=== PATIENT | male | born 1955 | race Caucasian/White ===

== ENCOUNTER 2017-06-15 05:38 | Day surgery (SDC) | payer BC ==
[2017-06-15] MEDS ORDERED: LR 1,000 ML IV ONE (05:52)
[2017-06-15] MEDS ORDERED: LIDOCAINE 1% 2 ML INJ ID PRN (05:52)
[2017-06-15 06:44] VITALS: PULSE 70
[2017-06-15] MEDS ORDERED: LIDOCAINE 2% JELLY 20 ML (UROJECT) ONE (06:50)
[2017-06-15] MEDS ORDERED: levOFLOXACIN 500 MG/DEXTROSE 100 ML IV ONE (07:00)
--- NOTE | 2017-06-15 07:23 | PDHPUP ---
History & Physical Update H&P update statement: This history and physical update is based on an assessment of the patient which was completed after admission or registration (within 24 hours), but prior to the surgery/procedure. H&P update: no change in patient's condition since H&P completed
--- NOTE | 2017-06-15 07:28 | PDANEPAE ---
ANE History of Present Illness Patient presents for TURBT ANE Past Medical History - Cardiovascular History Hx Hypertension: Yes Hx Arrhythmias: No Hx Chest Pain: No Hx Coronary Artery / Peripheral Vascular Disease: No Hx CHF / Valvular Disease: No Hx Palpitations: No Cardiovascular History Comment: on LIpitor - Pulmonary History Hx COPD: No Hx Asthma/Reactive Airway Disease: No Hx Recent Upper Respiratory Infection: No Hx Oxygen in Use at Home: No Hx Sleep Apnea: Yes Sleep Apnea Screening Result - Last Documented: Positive Pulmonary History Comment: asthma -well controlled - Neurologic History Hx Cerebrovascular Accident: No Hx Seizures: No Hx Dementia: No - Endocrine History Hx Diabetes: Yes Endocrine History Comment: DM TYPE I SINCE AUG 2008. ACUTE PANCREATITIS 2008. Insulin Pump x 7-8 weeks-Hgb A1c coming down. - Renal History Hx Renal Disorders: Yes Renal History Comment: recurrent bladder tumor. - Liver History Hx Hepatic Disorders: No - Neurological & Psychiatric Hx Hx Neurological and Psychiatric Disorders: No - Cancer History Hx Cancer: Yes Cancer History Comment: DEPRESSION,meds for 'focus"- on Provigil, Ritalin, Rexulti,and Vibryd. - Congenital Disorder History Hx Congenital Disorders: No - GI History Hx Gastrointestinal Disorders: Yes Gastrointestinal History Comment: GERD. s/p Whipple procedure- uses creon capsules to aid digestion. - Other Health History Other Health History: dry skin from diabetes. lower left missing teeth - Chronic Pain History Chronic Pain: No - Surgical History Prior Surgeries: TURBT 07-28, Whipple at [facility] , CHOLECYSTECTOMY 2008, scopes bilat knees, R shoulder scope. left total knee. ANE Review of Systems Review of Systems: - Exercise capacity METS (RN): 4 METS ANE Patient History - Allergies Allergies/Adverse Reactions: adenosine [Adenosine] Allergy (Intermediate, Verified 05/23/16 16:21) INCREASED ASTHMA SX. - Home Medications Home medications: home medication list seen and reviewed Home Medications: Albuterol [Proventil Inhaler] 2 puffs IH Q4 PRN 08/03/15 [Last Taken 05/25/17] Atorvastatin Calcium [Lipitor] 20 mg PO HS 08/03/15 [Last Taken 06/14/17] Brexpiprazole [Rexulti] 2 mg PO DAILY 08/03/15 [Last Taken 06/15/17 04:30] Fluticasone/Salmeter 500/50Mcg [Advair] 1 puffs IH BID 08/03/15 [Last Taken 10/28] Herbals/Supplements -Info Only 1 ea PO DAILY 08/03/15 [Last Taken 06/14/17] Insulin Aspart [novoLOG] 15 - 18 unit SC Q1 08/03/15 [Last Taken 06/15/17] LORazepam [Ativan] 1 mg PO BID PRN 08/03/15 [Last Taken 05/25/17] Lipase 24,000/Amylase/Protease [Creon 24] 4 - 6 cap PO TIDMEAL 08/03/15 [Last Taken 06/14/17] Lisinopril [Zestril 40 mg (RX)] 40 mg PO HS 08/03/15 [Last Taken 06/14/17] Methylphenidate HCl [Ritalin] 10 mg PO 08/03/15 [Last Taken 06/14/17] Modafinil [Provigil] 200 mg PO DAILY 08/03/15 [Last Taken 06/15/17 04:30] Multivitamins [Multivitamin (*)] 1 each PO DAILY 08/03/15 [Last Taken 06/14/17] Nebivolol HCl [Bystolic] 20 mg PO HS 08/03/15 [Last Taken 06/14/17] Omeprazole [Prilosec] 40 mg PO DAILY 08/03/15 [Last Taken 06/15/17 04:30] Testosterone Cypionate 100 mg IM .QWEEK 08/03/15 [Last Taken 06/11/17] Vilazodone HCl [Viibryd] 40 mg PO DAILY 08/03/15 [Last Taken 06/15/17 04:30] Zolpidem Tartrate [Ambien 5MG (*)] 10 mg PO HS PRN 08/03/15 [Last Taken 21:00] amLODIPine BESYLATE [Norvasc] 10 mg PO HS 08/03/15 [Last Taken 06/14/17] - NPO status NPO Status: no food or drink >8 hours NPO Since - Liquids (Date): 06/14/17 NPO Since - Liquids (Time): 22:00 NPO Since - Solids (Date): 06/14/17 NPO Since - Solids (Time): 22:00 - Anes Hx Anes Hx: no prior problems - Smoking Hx Smoking Status: Former smoker ANE Labs/Vital Signs - Vital Signs Blood Pressure: 129/85 Heart Rate: 70 Respiratory Rate: 16 O2 Sat (%): 94 Height: 175.26 cm Weight: 90.718 kg ANE Physical Exam - Airway Neck exam: FROM Mallampati Score: Class 1 - Pulmonary Pulmonary: no respiratory distress - Cardiovascular Cardiovascular: regular rate and rhythym - ASA Status ASA Status: III ANE Anesthesia Plan Anesthesia Plan: general endotracheal anesthesia (rba discussed)
[2017-06-15] MEDS ORDERED: PROPOFOL 200 MG/20 ML VIAL ONE (07:30)
[2017-06-15] MEDS ORDERED: fentaNYL 100 MCG/2 ML INJ ONE (07:30)
[2017-06-15] MEDS ORDERED: SUCCINYLCHOLINE CHLORIDE*ANESTHESIA ONLY*200 MG/10 ML SYR IVP ONE (07:31)
[2017-06-15] MEDS ORDERED: ONDANSETRON 4 MG/2 ML VIAL ONE (07:31)
[2017-06-15] MEDS ORDERED: LIDOCAINE 2% 5 ML SDV ONE (07:31)
[2017-06-15] MEDS ORDERED: DEXAMETHASONE 4 MG/ML VIAL ONE (07:31)
[2017-06-15] MEDS ORDERED: epHEDrine SULFATE 10 MG/ML SYR ONE (08:17)
--- NOTE | 2017-06-15 08:51 | POSTANESTH ---
Post Anesthetic Evaluation Cardiovascular Status: Normal, Stable Respiratory Status: Normal, Stable Level of Consciousness/Mental Status: Can Participate in Eval Pain Control: Adequate, Prn Tx Ordered Nausea/Vomiting Control: Adequate, Prn Tx Ordered Complications Possibly Related to Anesthesia: None Noted
[2017-06-15] MEDS ORDERED: HYDROCODONE/APAP 5/325 TAB PO PRN (08:52)
[2017-06-15] MEDS ORDERED: NALOXONE HCL 0.4 MG/ML INJ IVP PRN (08:52)
[2017-06-15] MEDS ORDERED: ONDANSETRON 4 MG/2 ML VIAL IVP PRN (08:52)
[2017-06-15] MEDS ORDERED: LR 500 ML IV PRN (08:52)
[2017-06-15] MEDS ORDERED: ACETAMINOPHEN 500 MG TAB PO PRN (08:52)
[2017-06-15 09:09] VITALS: RESP 18
--- NOTE | 2017-06-15 09:14 | POSTOPPROG ---
Post Op Note Date of Operation: 06/15/17 Surgeon: Melany Umaña (# [id number]) Anesthesia: LMA Pre-op Diagnosis: Recurrent bladder tumors Post-op Diagnosis: 2.5 cm volume of recurrent bladder tumors Procedure: TURBT Findings: See op note Inf/Abcess present in the surg proc area at time of surgery?: No EBL: Minimal Complications: None Specimen(s): Bladder tumors
--- NOTE | 2017-06-15 09:14 | POSTOPPROG ---
Post Op Note Date of Operation: 06/15/17 Surgeon: Melany Umaña (# [id number]) Anesthesia: LMA Pre-op Diagnosis: Recurrent bladder tumors Post-op Diagnosis: 2.5 cm volume of recurrent bladder tumors Procedure: TURBT Findings: See op note Inf/Abcess present in the surg proc area at time of surgery?: No EBL: Minimal Complications: None Specimen(s): Bladder tumors
--- NOTE | 2017-06-15 09:14 | POSTOPPROG ---
Post Op Note Date of Operation: 06/15/17 Surgeon: Melany Umaña (# [id number]) Anesthesia: LMA Pre-op Diagnosis: Recurrent bladder tumors Post-op Diagnosis: 2.5 cm volume of recurrent bladder tumors Procedure: TURBT Findings: See op note Inf/Abcess present in the surg proc area at time of surgery?: No EBL: Minimal Complications: None Specimen(s): Bladder tumors
--- NOTE | 2017-06-15 09:18 | GOP ---
[f rep st] OPERATIVE REPORT DATE OF OPERATION: 06/15/2017 SURGEON: Melany Umaña MD ANESTHESIA: Laryngeal mask. PREOPERATIVE DIAGNOSIS: Recurrent bladder tumors with history of bladder cancer. POSTOPERATIVE DIAGNOSIS: 1. Approximately 2.5 cm collective recurrence of bladder tumors. 2. History of recurrent bladder cancer. PROCEDURE PERFORMED: Transurethral resection of 2.5 cm bladder tumors. FINDINGS: Small recurrent bladder tumors, as noted in body of the operative report. SPECIMENS: Bladder tumors. ESTIMATED BLOOD LOSS: Minimal. INDICATIONS: This gentleman was found to have recurrent small bladder tumors on recent surveillance cystoscopy, that collectively measured approximately 2.5 cm in diameter. It was recommended that he undergo intraoperative management. The indications for the procedures as well as potential risks and complications, were discussed with the patient preoperatively. He appeared to understand, his quest ions were answered, and he wished to proceed. Written informed surgical consent was thereafter obtai blossom. DESCRIPTION OF PROCEDURE: The patient was brought to the operating room and administered laryngeal m ask anesthesia. He was carefully placed in the dorsal lithotomy position on the cystoscopic table. The genital area was sterilely prepped with Betadine scrub and paint then draped in the usual sterile fashion. Cystoscopy was performed with the 30-degree and 70-degree lenses through a 22-[place] sheat h. Anterior urethra revealed no abnormalities. Posterior urethra revealed mild lateral lobe BPH. C areful evaluation of bladder revealed some small papillary tumors that were located predominantly paulina r the dome of the bladder and right anterolateral aspect. There were a couple of other areas of slig htly increased focal mucosal erythema along the posterior wall. Right ureteral orifice was normal in shape and position. Left ureteral orifice had been previously surgically resected but was widely pa tent. The bladder was otherwise unremarkable. I then used flexible biopsy forceps to obtain delivery representative biopsies from the regions of the tumors. These were sent to Pathology for histologic examination. The 26-[place] resectoscopic sheath was th en inserted, along with the laser resectoscope and a button electrode. I used the button electrode t o thoroughly cauterize all of the biopsied regions of the bladder, as well as any other remaining are as of abnormal erythema. At the conclusion of the procedure, the bladder was hemostatic, and there w as no evidence of residual tumors remaining, and no gross perforation of the bladder had ensued as a result of the operative process. The instruments were removed and 20 cc of 2% lidocaine injected tra nsurethrally for postoperative analgesic purposes. The patient was then awakened, transferred to his bed, then taken to the recovery room. He tolerated the procedure well overall. COMPLICATIONS: None. DISPOSITION: He was transferred to the recovery room in stable condition. /[id number]/MODL
--- NOTE | 2017-06-15 09:18 | GOP ---
[f rep st] OPERATIVE REPORT DATE OF OPERATION: 06/15/2017 SURGEON: Melany Umaña MD ANESTHESIA: Laryngeal mask. PREOPERATIVE DIAGNOSIS: Recurrent bladder tumors with history of bladder cancer. POSTOPERATIVE DIAGNOSIS: 1. Approximately 2.5 cm collective recurrence of bladder tumors. 2. History of recurrent bladder cancer. PROCEDURE PERFORMED: Transurethral resection of 2.5 cm bladder tumors. FINDINGS: Small recurrent bladder tumors, as noted in body of the operative report. SPECIMENS: Bladder tumors. ESTIMATED BLOOD LOSS: Minimal. INDICATIONS: This gentleman was found to have recurrent small bladder tumors on recent surveillance cystoscopy, that collectively measured approximately 2.5 cm in diameter. It was recommended that he undergo intraoperative management. The indications for the procedures as well as potential risks and complications, were discussed with the patient preoperatively. He appeared to understand, his quest ions were answered, and he wished to proceed. Written informed surgical consent was thereafter obtai blossom. DESCRIPTION OF PROCEDURE: The patient was brought to the operating room and administered laryngeal m ask anesthesia. He was carefully placed in the dorsal lithotomy position on the cystoscopic table. The genital area was sterilely prepped with Betadine scrub and paint then draped in the usual sterile fashion. Cystoscopy was performed with the 30-degree and 70-degree lenses through a 22-[place] sheat h. Anterior urethra revealed no abnormalities. Posterior urethra revealed mild lateral lobe BPH. C areful evaluation of bladder revealed some small papillary tumors that were located predominantly paulina r the dome of the bladder and right anterolateral aspect. There were a couple of other areas of slig htly increased focal mucosal erythema along the posterior wall. Right ureteral orifice was normal in shape and position. Left ureteral orifice had been previously surgically resected but was widely pa tent. The bladder was otherwise unremarkable. I then used flexible biopsy forceps to obtain customer service representative teller biopsies from the regions of the tumors. These were sent to Pathology for histologic examination. The 26-[place] resectoscopic sheath was th en inserted, along with the laser resectoscope and a button electrode. I used the button electrode t o thoroughly cauterize all of the biopsied regions of the bladder, as well as any other remaining are as of abnormal erythema. At the conclusion of the procedure, the bladder was hemostatic, and there w as no evidence of residual tumors remaining, and no gross perforation of the bladder had ensued as a result of the operative process. The instruments were removed and 20 cc of 2% lidocaine injected tra nsurethrally for postoperative analgesic purposes. The patient was then awakened, transferred to his bed, then taken to the recovery room. He tolerated the procedure well overall. COMPLICATIONS: None. DISPOSITION: He was transferred to the recovery room in stable condition. /[id number]/MODL
--- NOTE | 2017-06-15 09:18 | GOP ---
[f rep st] OPERATIVE REPORT DATE OF OPERATION: 06/15/2017 SURGEON: Melany Umaña MD ANESTHESIA: Laryngeal mask. PREOPERATIVE DIAGNOSIS: Recurrent bladder tumors with history of bladder cancer. POSTOPERATIVE DIAGNOSIS: 1. Approximately 2.5 cm collective recurrence of bladder tumors. 2. History of recurrent bladder cancer. PROCEDURE PERFORMED: Transurethral resection of 2.5 cm bladder tumors. FINDINGS: Small recurrent bladder tumors, as noted in body of the operative report. SPECIMENS: Bladder tumors. ESTIMATED BLOOD LOSS: Minimal. INDICATIONS: This gentleman was found to have recurrent small bladder tumors on recent surveillance cystoscopy, that collectively measured approximately 2.5 cm in diameter. It was recommended that he undergo intraoperative management. The indications for the procedures as well as potential risks and complications, were discussed with the patient preoperatively. He appeared to understand, his quest ions were answered, and he wished to proceed. Written informed surgical consent was thereafter obtai blossom. DESCRIPTION OF PROCEDURE: The patient was brought to the operating room and administered laryngeal m ask anesthesia. He was carefully placed in the dorsal lithotomy position on the cystoscopic table. The genital area was sterilely prepped with Betadine scrub and paint then draped in the usual sterile fashion. Cystoscopy was performed with the 30-degree and 70-degree lenses through a 22-[place] sheat h. Anterior urethra revealed no abnormalities. Posterior urethra revealed mild lateral lobe BPH. C areful evaluation of bladder revealed some small papillary tumors that were located predominantly paulina r the dome of the bladder and right anterolateral aspect. There were a couple of other areas of slig htly increased focal mucosal erythema along the posterior wall. Right ureteral orifice was normal in shape and position. Left ureteral orifice had been previously surgically resected but was widely pa tent. The bladder was otherwise unremarkable. I then used flexible biopsy forceps to obtain contracts representative biopsies from the regions of the tumors. These were sent to Pathology for histologic examination. The 26-[place] resectoscopic sheath was th en inserted, along with the laser resectoscope and a button electrode. I used the button electrode t o thoroughly cauterize all of the biopsied regions of the bladder, as well as any other remaining are as of abnormal erythema. At the conclusion of the procedure, the bladder was hemostatic, and there w as no evidence of residual tumors remaining, and no gross perforation of the bladder had ensued as a result of the operative process. The instruments were removed and 20 cc of 2% lidocaine injected tra nsurethrally for postoperative analgesic purposes. The patient was then awakened, transferred to his bed, then taken to the recovery room. He tolerated the procedure well overall. COMPLICATIONS: None. DISPOSITION: He was transferred to the recovery room in stable condition. /[id number]/MODL
[2017-06-15] MEDS ORDERED: PHENAZOPYRIDINE HCL 200 MG TAB PO ONE (09:30)
[2017-06-15 09:59] VITALS: BP 133/70; O2SAT 94
[2017-06-15 10:43] VITALS: TEMP 98.1
== END 2017-06-15 10:02 | disposition home or self-care (01) ==
LOC: FSGY 05:38
PROVIDERS: ATTEND Specialist
PROC: 0T5B8ZZ Destruction of Bladder, Via Natural or Artificial Opening Endoscopic (ICD-10-PCS; principal; 2017-06-15 07:15)
PROC: 0TBB8ZX Excision of Bladder, Via Natural or Artificial Opening Endoscopic, Diagnostic (ICD-10-PCS; principal; 2017-06-15 07:15)
DX: C67.9 Malignant neoplasm of bladder, unspecified (principal); I10 Essential (primary) hypertension; G47.30 Sleep apnea, unspecified; J45.909 Unspecified asthma, uncomplicated; E11.9 Type 2 diabetes mellitus without complications; Z96.41 Presence of insulin pump (external) (internal)
CPT/HCPCS: J0330; J1100; J1956; J2405; J2704; J3010